=== PATIENT | female | born 1965 | race Caucasian/White ===

== ENCOUNTER 2018-02-22 09:08 | Emergency (ER) | payer BC ==
[2018-02-22 09:22] VITALS: BP 141/72
--- NOTE | 2018-02-22 10:08 | UC ---
Eye Complaint HPI - HPI Summary HPI Summary: 53-year-old female presents for onset of right eye irritation, redness, and drainage yesterday afternoon. Associated with some photophobia. Denies fever, chills, nasal congestion, sore throat, cough, injury, visual disturbances, or foreign body sensation. Does not wear contacts. - History of Current Complaint Chief Complaint: UCEye Stated Complaint: EYE ISSUE Time Seen by Provider: 02/22/18 10:05 Hx Obtained From: Patient Pain Intensity: 8 - Allergies/Home Medications Allergies/Adverse Reactions: Allergies Allergy/AdvReac Type Severity Reaction Status Date / Time chlorhexidine Allergy Rash Verified 02/22/18 09:22 codeine AdvReac GI Upset Verified 02/22/18 09:22 Home Medications: Home Medications Cholecalciferol (Vitamin D3) [ Vitamin D3] 1,000 unit PO DAILY 02/22/18 [ History Confirmed 02/22/18] [facility] 400 mg PO ONCE PRN 02/22/18 [History Confirmed 02/22/18] PMH/Surg Hx/FS Hx/Imm Hx Previously Healthy: Yes - Denies significant PMH - Surgical History Surgical History: Yes Surgery Procedure, Year, and Place: cleft lip/palate, dental implant, bone grafts, broken nose, - Family History Known Family History: Positive: Non-Contributory - Social History Occupation: Employed Full-time Lives: Alone Alcohol Use: Occasionally Substance Use Type: None Smoking Status (MU): Never Smoked Tobacco Review of Systems All Other Systems Reviewed And Are Negative: Yes Constitutional: Negative: Fever, Chills Eyes: Positive: Drainage, Eye Redness, Photophobia. Negative: Blurred Vision, Diplopia ENT: Negative: Sore Throat, Ear Ache, Nasal Discharge, Sinus Congestion, Sinus Pain/Tenderness Respiratory: Negative: Cough Cardiovascular: Positive: Negative Gastrointestinal: Positive: Negative Genitourinary: Positive: Negative Musculoskeletal: Positive: Negative Neurological: Positive: Negative Is Patient Immunocompromised?: No Physical Exam - Summary Physical Exam Summary: GENERAL APPEARANCE: Well developed, well nourished, alert and cooperative, and appears to be in no acute distress. HEAD: Atraumatic. normocephalic. EYES: Right eye with conjunctival erythema and small amount of purulent drainage. Left eye normal. Extraoccular eye movements intact. No foreign body noted. Vision is grossly intact. EARS: External auditory canals and tympanic membranes clear, hearing grossly intact. NOSE: No nasal discharge. THROAT: Oral cavity and pharynx normal. No inflammation, swelling, exudate, or lesions. Teeth and gingiva in good general condition. NECK: Neck supple, non-tender without lymphadenopathy. CARDIAC: Normal S1 and S2. No S3, S4 or murmurs. Rhythm is regular. There is no peripheral edema, cyanosis or pallor. Extremities are warm and well perfused. Capillary refill is less than 2 seconds. LUNGS: Clear to auscultation and percussion without rales, rhonchi, wheezing or diminished breath sounds. ABDOMEN: Positive bowel sounds. Soft, nondistended, nontender. No guarding or rebound. No masses or hepatosplenomegally. MUSKULOSKELETAL: ROM intact to all extremities. No joint erythema or tenderness. Normal muscular development. Normal gait. SKIN: Skin normal color, texture and turgor with no lesions or eruptions. Triage Information Reviewed: Yes Vital Signs: Initial Vital Signs Temp 97.8 F 02/22/18 09:16 Pulse 65 02/22/18 09:16 Resp 18 02/22/18 09:16 BP 141/72 02/22/18 09:16 Pulse Ox 97 02/22/18 09:16 Vital Signs Reviewed: Yes Eye Complaint Course/Dx - Course Course Of Treatment: 53-year-old female presents for onset of right eye irritation, redness, and drainage yesterday afternoon. Associated with some photophobia. Denies fever, chills, nasal congestion, sore throat, cough, injury , visual disturbances, or foreign body sensation. Afebrile. Vital signs stable. Exam revealed conjunctival erythema with some purulent drainage to the right. Extraocular movements intact. Vision grossly intact. No foreign body noted. Exam otherwise unremarkable. Will treat for bacterial conjunctivitis of the right eye. She was given a dose of tobramycin ophthalmic drops in the clinic and bottle was dispensed home with instructions to instill 1 drop every 3 hours while awake for a maximum of 6 doses for the next 7 days. She was given referral to Dr. Prather for follow-up if symptoms do not improve. Warning symptoms were reviewed with the patient. Verbalizes understanding and agrees with plan of care. - Differential Dx/Diagnosis Differential Diagnosis/HQI/PQRI: Conjunctivitis, Corneal Abrasion, Foreign Body Provider Diagnosis: Conjunctivitis Discharge - Sign-Out/Discharge Documenting (check all that apply): Patient Departure All imaging exams completed and their final reports reviewed: No Studies - Discharge Plan Condition: Stable Disposition: HOME Patient Education Materials: Conjunctivitis (ED) Referrals: No Primary Care Phys,NOPCP [Primary Care Provider] - Tomás Prather MD [Medical Doctor] - (Call for appointment if no improvement in symptoms.) Additional Instructions: Use tobramycin ophthalmic drops - instill 1 drop into the affected eye every 3 hours while awake for 7 days. Maximum of 6 doses per day. Follow up with Dr. Prather, ophthalmology, if symptoms do not improve. Call for appointment. Seek immediate medical attention in the emergency room if you have worsening pain, swelling of the eye, visual disturbances or loss of vision, or any worsening of symptoms. - Billing Disposition and Condition Condition: STABLE Disposition: Home
[2018-02-22] MEDS: Tobramycin 0.3% OPHTH.SOL* 5 ML BOT (regular eye drops) RIGHT EYE ONE (10:21)
== END 2018-02-22 10:28 | disposition home or self-care (01) ==
LOC: UCEAST 09:08
DX: H10.9 Unspecified conjunctivitis (principal); Z88.5 Allergy status to narcotic agent
CPT/HCPCS: 99212; A9270-GY; G0463